=== PATIENT | male | born 1945 ===

== ENCOUNTER → 2018-04-08 18:07 | Outpatient (REF) | payer MEDICARE, OTHER, SELFPAY ==
[2018-04-08 19:06] LABS: Alanine Aminotransferase 28 IU/L (21-72); Albumin 3.6 g/dL (3.5-5.0); Albumin Globulin Ratio 1.4 (1.0-2.8); Alkaline Phosphatase 97 U/L (38-126); Aspartate Aminotransferase 26 IU/L (17-59); BUN Creatinine Ratio 32.5 (6-22); Bilirubin Total 0.7 mg/dL (0.2-1.3); Blood Urea Nitrogen 26 mg/dL (9-20); Calcium 8.6 mg/dL (8.4-10.2); Carbon Dioxide 28 mmol/L (22-32); Cholesterol 123 mg/dL (140-199); Estimated Glomerular Filt Rate > 60.0 mL/min (>60); Globulin 2.5 g/dL (1.7-4.1); Glucose 85 mg/dL (80-110); HDL Cholesterol 47 mg/dL (40-60); HEMOLYSIS < 15 (0-50); LDL Cholesterol Calculated 65 mg/dL (<100); Total Protein 6.1 g/dL (6.3-8.2); Triglycerides 55 mg/dL (35-150)
[2018-04-08 19:22] LABS: Chloride 103 mmol/L (98-107); Potassium 4.1 mmol/L (3.4-5.1); Sodium 140 mmol/L (137-145)
== END ==
LOC: LAB 18:07
PROVIDERS: Visit Provider Family Medicine
DX: Z12.5 Encounter for screening for malignant neoplasm of prostate (principal); Z13.6 Encounter for screening for cardiovascular disorders; Z13.1 Encounter for screening for diabetes mellitus; Z13.228 Encounter for screening for other metabolic disorders
CPT/HCPCS: 36415; 80053; 80061; 84153

== ENCOUNTER → 2018-04-08 18:34 | Outpatient (REF) | payer MEDICARE, OTHER, SELFPAY | LOC: LAB 18:34 | PROVIDERS: Visit Provider Family Medicine | DX: Z12.5 Encounter for screening for malignant neoplasm of prostate (principal) ==